=== PATIENT | female | born 1975 | race Caucasian/White ===

== ENCOUNTER → 2018-02-13 | Emergency (ER) | payer OTHER ==
[~2018-02-13] VITALS: Ht 167.6 cm; Wt 74.8 kg
[~2018-02-13] MED LIST: LOSARTAN POTASS50 MG; METROPOLOL 100 MG; TOBRADEX ST EYE5 ML OP
== END | disposition home or self-care (01) ==
LOC: ER 23:14
DX: H10.211 Acute toxic conjunctivitis, right eye (principal)